=== PATIENT | female | born 1995 | race Caucasian/White ===

== ENCOUNTER 2020-01-22 05:27 | Inpatient (IN) ==
[2020-01-22] MEDS ORDERED: ONDANSETRON 4 MG/2 ML VIAL IV PRN ×2 (05:36→09:47)
[2020-01-22] MEDS ORDERED: LACTATED RINGERS 500 ML IV PRN (05:36)
[2020-01-22] MEDS ORDERED: LACTATED RINGERS 1,000 ML IV ONE (05:36)
[2020-01-22] MEDS ORDERED: CITRIC ACID/SODIUM CITRATE 30 ML UDCUP PO ONE (05:40)
[2020-01-22] MEDS ORDERED: FAMOTIDINE 20 MG/2 ML VIAL IV ONE (05:47)
[2020-01-22] MEDS ORDERED: CLINDAMYCIN INJ 900 MG in PREMIX 1 EACH IV ONE (06:00)
[2020-01-22] MEDS ORDERED: LACTATED RINGERS 1,000 ML IV SCH ×2 (06:00)
[2020-01-22 06:30] LABS: Basophils % 0.3 % (0.0-0.8); Eosinophils # 0.1 10*3/uL (0.0-0.87); Hematocrit 43.3 VOL% (35.7-47.0); Hemoglobin 14.7 GM/DL (12.0-16.0); Immature Granulocytes % 0.5 %; Immature Granulocytes Absolute 0.05 #; Lymphocytes # 2.1 10*3/uL (1.4-4.0); Lymphocytes % 23.3 % (21.3-54.2); Mean Corpuscular HGB Conc 33.9 GM/DL (32-36); Mean Corpuscular Volume 91.7 FL (87-102); Mean Platelet Volume 11.8 FL (9.6-12.0); Monocytes % 5.7 % (1.7-12.7); Neutrophils % 69.2 % (38.7-73.9); Platelet Count 219 T/CUMM (130-400); Red Blood Count 4.72 MC/CUMM (3.8-5.5); Red Cell Distribution Width 13.3 % (9.3-17.3); White Blood Count 9.1 T/CUMM (4-12)
[2020-01-22 06:39] LABS: Albumin 2.5 G/DL (3.4-5.0); Bilirubin,Total 0.8 MG/DL (0.2-1.0); Calcium 9.1 MG/DL (8.5-10.1); Osmolality,Calculated 271.8 MOS/KG (273-304)
[2020-01-22] MEDS ORDERED: BUPIVACAINE SPINAL 0.75% 2 ML AMP SPINAL ONE (06:55)
[2020-01-22] MEDS ORDERED: BUPIVACAINE 0.25% 50 ML VIAL ONE (06:55)
[2020-01-22] MEDS ORDERED: METHYLERGONOVINE 0.2 MG/1 ML AMP ONE (06:59)
[2020-01-22] MEDS ORDERED: miSOPROStoL 200 MCG TABLET ONE (06:59)
[2020-01-22] MEDS ORDERED: OXYTOCIN/LR 20 UNIT/1,000 ML BAG IV ONE ×2 (07:00→09:47)
[2020-01-22 08:39] LABS: Cord Arterial Blood HCO3 22.9 MMOL/L
[2020-01-22 08:40] LABS: Cord Venous Blood HCO3 23.3 MMOL/L; Cord Venous Blood PCO2 41.2 MMHG; Cord Venous Blood PO2 35.4 MMHG
[2020-01-22 09:08] LABS: Apearance,Urine CLEAR (Clear); Bilirubin,Urine Negative (Negative); Blood, Urine Negative (Negative); Glucose,Urine (UA) Negative (Negative); Ketones,Urine Negative (Negative); Mucus,Urine Occasional /LPF (Occasional); Nitrite,Urine Negative (Negative); Protein,Urine 30 MG/DL; Squamous Epithelial Cell,Urine Occasional /HPF (0-10); Urine Color Yellow (Yellow); Urine Specific Gravity 1.016 (1.001-1.035); Urine Urobilinogen < 2.0 EU/DL (0.2-1.0); WBC,Urine <1 /HPF (0-6)
[2020-01-22] MEDS ORDERED: MORPHINE 10 MG/10 ML VIAL ONE (09:24)
[2020-01-22] MEDS ORDERED: ONDANSETRON 4 MG/2 ML VIAL ONE (09:25)
[2020-01-22] MEDS ORDERED: PHENYLEPHRINE 1 MG/10 ML SYRINGE IV ONE (09:25)
[2020-01-22] MEDS ORDERED: oxyCODONE/ACETAMINOPHEN 5-325 MG TABLET PO PRN ×2 (09:47)
[2020-01-22] MEDS ORDERED: HYDROCORTISONE 2.5% RECTAL CREAM 30 GM TUBE TOP PRN (09:47)
[2020-01-22] MEDS ORDERED: RHO(D) IMMUNE GLOBULIN 300 MCG SYRINGE IM ONE (09:47)
[2020-01-22] MEDS ORDERED: IBUPROFEN 800 MG TABLET PO PRN (09:47)
[2020-01-22] MEDS ORDERED: BISACODYL 10 MG SUPP RECTAL PRN (09:47)
[2020-01-22] MEDS ORDERED: ACETAMINOPHEN 325 MG TABLET PO PRN (09:47)
[2020-01-22] MEDS ORDERED: BENZOCAINE 20%/MENTHOL 0.5% SPRAY 56 GM CAN TOP PRN (09:47)
[2020-01-22] MEDS ORDERED: LANOLIN 50% CREAM 0.3 OZ TUBE TOP PRN (09:47)
[2020-01-22] MEDS ORDERED: WITCH HAZEL PADS 100/JAR TOP PRN (09:47)
[2020-01-22] MEDS ORDERED: MEASLES/MUMPS/RUBELLA VACCINE 0.5 ML VIAL SUBCUT ONE (09:47)
[2020-01-22] MEDS ORDERED: DIPH/TET/ACEL PERT BOOSTER VACCINE 0.5 ML VIAL IM ONE (09:47)
[2020-01-22] MEDS ORDERED: LABETALOL 100 MG TABLET PO SCH (10:16)
[2020-01-22 11:04] LABS: PT Patient Result 10.3 SECS (9.8-11.9); Partial Thromboplastin Time 27.3 SECS (23.9-33.8)
[2020-01-22] MEDS ORDERED: hydrALAZINE 20 MG/1 ML VIAL IV ONE (11:09)
[2020-01-22 11:12] LABS: Alanine Aminotransferase 23 U/L (13-56); Albumin 2.1 G/DL (3.4-5.0); Alkaline Phosphatase 233 U/L (45-117); Aspartate Amino Transferase 30 U/L (0-37); Bilirubin,Direct < 0.100 MG/DL (0.0-0.20); Bilirubin,Total < 0.39 MG/DL (0.2-1.0); Blood Urea Nitrogen 11 MG/DL (7-18); Calcium 8.8 MG/DL (8.5-10.1); Estimated Glom Filtration Rate 142 ML/MIN; Glucose 82 MG/DL (74-106); Osmolality,Calculated 274.5 MOS/KG (273-304); Total Protein 6.1 G/DL (6.4-8.3); Uric Acid 5.2 MG/DL (2.6-6.0)
[2020-01-22] MEDS ORDERED: diphenhydrAMINE 50 MG/1 ML VIAL ONE (11:16)
[2020-01-22] MEDS ORDERED: diphenhydrAMINE 50 MG/1 ML VIAL IV ONE (11:19)
[2020-01-22] MEDS ORDERED: MAGNESIUM SULF DRIP 40 GM/1,000 ML ML IV SCH (12:00)
[2020-01-22] MEDS ORDERED: hydrALAZINE 20 MG/1 ML VIAL IV PRN (12:25)
[2020-01-22] MEDS: CLINDAMYCIN INJ 900 MG in PREMIX 1 EACH IV SCH (16:38)
[2020-01-22] MEDS: DOCUSATE SODIUM 100 MG CAPSULE PO SCH (21:20)
[2020-01-22] MEDS: KETOROLAC 30 MG/1 ML VIAL IV SCH (21:43)
[2020-01-22] MEDS: ACETAMINOPHEN 500 MG TABLET PO SCH (21:44)
[2020-01-22] MEDS ORDERED: HydrOXYzine PAMOATE 25 MG CAPSULE PO PRN (22:53)
[2020-01-22] MEDS ORDERED: hydrOXYzine HCL 25 MG/1 ML VIAL IM ONE (23:00)
[2020-01-23] MEDS: CLINDAMYCIN INJ 900 MG in PREMIX 1 EACH IV SCH ×3 (00:30→17:11)
[2020-01-23] MEDS: LABETALOL 200 MG TABLET PO SCH ×3 (03:01→18:20)
[2020-01-23] MEDS: KETOROLAC 30 MG/1 ML VIAL IV SCH ×3 (04:00→16:13)
[2020-01-23] MEDS: ACETAMINOPHEN 500 MG TABLET PO SCH ×3 (04:00→16:17)
[2020-01-23 06:55] LABS: Basophils % 0.4 % (0.0-0.8); Eosinophils # 0.1 10*3/uL (0.0-0.87); Eosinophils % 0.5 % (0.00-10.9); Hematocrit 35.5 VOL% (35.7-47.0); Hemoglobin 11.6 GM/DL (12.0-16.0); Immature Granulocytes % 0.4 %; Immature Granulocytes Absolute 0.04 #; Lymphocytes # 1.6 10*3/uL (1.4-4.0); Lymphocytes % 16.8 % (21.3-54.2); Mean Corpuscular HGB Conc 32.7 GM/DL (32-36); Mean Corpuscular Volume 94.4 FL (87-102); Mean Platelet Volume 11.2 FL (9.6-12.0); Monocytes % 6.4 % (1.7-12.7); Neutrophils % 75.5 % (38.7-73.9); Platelet Count 170 T/CUMM (130-400); Red Blood Count 3.76 MC/CUMM (3.8-5.5); Red Cell Distribution Width 13.6 % (9.3-17.3); White Blood Count 9.4 T/CUMM (4-12)
[2020-01-23] MEDS ORDERED: MAGNESIUM HYDROXIDE SUSP 30 ML UDCUP PO PRN (08:45)
[2020-01-23] MEDS ORDERED: SIMETHICONE CHEW 80 MG TABLET PO PRN (08:45)
[2020-01-23] MEDS: DOCUSATE SODIUM 100 MG CAPSULE PO SCH ×2 (08:58→20:44)
[2020-01-24] MEDS: LABETALOL 200 MG TABLET PO SCH ×2 (02:07→12:30)
[2020-01-24] MEDS: DOCUSATE SODIUM 100 MG CAPSULE PO SCH (09:22)
[2020-01-24] MEDS ORDERED: TISSUE ADHESIVE 1 EACH APPLICATOR TOP ONE (10:53)
[2020-01-24 12:52] VITALS: BP 148/67
== END 2020-01-24 13:30 | disposition home or self-care (01) | DRG 788 ==
LOC: N.LD 05:27 → N.OB 20:20
PROVIDERS: ADMIT Specialist; ATTEND Specialist
PROC: LDCSECT (ICD-10-PCS; 2020-01-22 07:30)